=== PATIENT | female | born 1955 | race Asian ===

== ENCOUNTER 2018-11-02 12:56 | Day surgery (SDC) | payer MEDICARE, OTHER ==
[~2018-11-02] VITALS: Ht 152.4 cm; Wt 73.8 kg
[2018-11-02 13:50] VITALS: BP 117/70; PULSE 82; RESP 19
[2018-11-02] MEDS ORDERED: VITAMIN D3 (14:03)
--- NOTE | 2018-11-02 14:44 | HPN ---
Date/Time of Note Date/Time of Note DATE: 11/02/18 TIME: 14:44 Interval H&P Admission Note Pt. seen H&P reviewed: No system changes RY NERI November 02, 2018 14:44
--- NOTE | 2018-11-02 15:17 | PREAC ---
Date/Time of Note Date/Time of Note DATE: 11/02/18 TIME: 1350 Anesthesia Eval and Record Evaluation Time Pre-Procedure Interview DATE: 11/02/18 TIME: 15:14 Age 63 Sex female NPO: 8 hrs Preoperative diagnosis screening Planned procedure colonoscopy Past Medical History Past Medical History: Includes Pulm: Smoking Hx Surgery & Anesthesia Issues No known issue Meds Anticoagulation: No Beta Daisha within 24 hr: No Reason Beta Daisha not given: COPD, Other Reported Medications [Vitamin D3] No Conflict Check 11/02/18 Meds reviewed: Yes Allergies Coded Allergies: aspirin (Verified Allergy, Mild, STOMACH SENSITIVITY, 11/02/18) hydrocodone (Verified Allergy, Mild, DIZZINESS, 11/02/18) Allergies Reviewed: Yes Labs/Studies Labs Reviewed: Reviewed by anesthesiologist test: N/A Pre-procedure Exam Last vitals Vital Signs Date Temp Pulse Resp B/P (MAP) Pulse Ox O2 O2 Flow FiO2 Time Delivery Rate 11/02/18 97.5 82 19 117/70 100 Room Air 13:50 (86) Airway: Adequate mouth opening Mallampati: Mallampati II Teeth: Abnormal (misssing) Lung: Normal Heart: Normal ASA Physical Status ASA physical status: 3 Emergency: None Planned Anesthetic General/MAC: MAC Pre-operative Attestations Prior to commencing anesthesia and surgery, the patient was re-evaluated, there was verification of: *The patient's identity *The results of appropriate recent lab work and preoperative vital signs *The above evaluation not changing prior to induction *Anesthetic plan, risk benefits, alternative and complications discussed with patient/family; questions answered; patient/family understands, accepts and wishes to proceed. NAEEM ROBLEDO MD November 02, 2018 15:17
--- NOTE | 2018-11-02 15:18 | PAC ---
Date/Time of Note Date/Time of Note DATE: 11/02/18 TIME: 15:17 Post-Anesthesia Notes Post-Anesthesia Note Last documented vital signs Vital Signs Date Temp Pulse Resp B/P (MAP) Pulse Ox O2 O2 Flow FiO2 Time Delivery Rate 11/02/18 97.5 82 19 117/70 100 Room Air 13:50 (86) Activity: WNL Respiratory function: WNL Cardiovascular function: WNL Mental status: Baseline Pain reasonably controlled: Yes Hydration appropriate: Yes Nausea/Vomiting absent: Yes NAEEM ROBLEDO MD November 02, 2018 15:18
== END 2018-11-02 15:43 | disposition home or self-care (01) ==
LOC: GIL 12:56
PROVIDERS: ATTEND Internal Medicine Gastroenterology
DX: Z12.11 Encounter for screening for malignant neoplasm of colon (principal); K62.1 Rectal polyp; K57.30 Diverticulosis of large intestine without perforation or abscess without bleeding; J44.9 Chronic obstructive pulmonary disease, unspecified; Z87.891 Personal history of nicotine dependence
CPT/HCPCS: 88305